=== PATIENT | female | born 1965 | race Caucasian/White ===

== ENCOUNTER 2016-09-23 08:51 | Emergency (ER) | payer MEDICAID, OTHER ==
[2016-09-23] MEDS ORDERED: ONDANSETRON 4MG/2ML VIAL (J2405) As Ordered ONE (09:54)
[2016-09-23] MEDS ORDERED: MORPHINE 4 MG/ML 1ML SYRINGE As Ordered ONE (09:55)
[2016-09-23] MEDS ORDERED: KETOROLAC 30 MG/ML VIAL (J1885) As Ordered ONE (10:41)
--- NOTE | 2016-09-23 11:17 | REP ---
Clinical: Right upper quadrant and right flank pain. Comparison: 07/17/2016. Findings: Liver, spleen, pancreas, bilateral adrenal glands and kidneys are normal for noncontrast evaluation. Specifically, there is no significant perinephric stranding, hydroureteronephrosis, intrarenal or obstructing ureteral calculi. The patient is status post cholecystectomy. The enteric system is without obstruction or acute inflammatory process and a normal terminal ileum and appendix are identified in the right lower quadrant. Scattered colonic diverticula noted without acute diverticulitis. Stable diverticulum extending along the posterior aspect of the gastric fundus in the left upper quadrant. Pelvis demonstrates normal bladder and evidence for prior hysterectomy. No pelvic fluid or ascites. No adenopathy. No mass lesion. No free air. Abdominal aorta without aneurysm. Musculoskeletal structures demonstrate degenerative changes. Lung bases are clear. Impression: No acute intra-abdominal or pelvic pathology appreciated. Evidence for prior cholecystectomy and hysterectomy. Colonic diverticula without acute diverticulitis. No ascites. Signed by Francesco Ross MD 09/23/2016 11:09 A
--- NOTE | 2016-09-23 12:34 | EDDOCDS ---
Nurse's Notes [facility] Name: Ana Rosa Melendez Age: 51 yrs Sex: Female : 1965 Arrival Date: 09/23/2016 Time: 08:51 Bed 12 Private MD: Diagnosis: Right upper quadrant pain Presentation: 09/23 08:53 Presenting complaint: EMS states: right sided flank pain since this 0400 this AM. pt pml reported nausea enroute and was given 4mg Zofran IVP. Acute neurological deficits are not present. Mechanism of Injury: No Mechanism of Injury. Adult Sepsis Screening: The patient does not have new or worsening altered mentation. Patient's respiratory rate is less than 22. Systolic blood pressure is greater than 100. Patient has a qSOFA score of 0- Negative Sepsis Screen. Suicide/Homicide risk assessment- the patient denies having any suicidal and/or homicidal ideations and does not present with any other emotional, behavioral or mental health complaints. 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 Transition of care: patient was not received from another setting of care. 08:53 Acuity: ELISA Level 3 pml 08:53 Method Of Arrival: Ambulance pml Triage Assessment: 09:00 General: Appears uncomfortable, Behavior is anxious, cooperative. Pain: Location: pml anterior aspect of right lateral abdomen and right upper quadrant Pain currently is 10 out of 10 on a pain scale. HIV screening NA for this visit Offered previously. The patient is triaged at the bedside. See Assessment in Nurses Notes section of ED record. Neurological: Level of Consciousness is awake, alert, Oriented to person, place, time. Cardiovascular: Capillary refill < 3 seconds. Respiratory: Airway is patent Respiratory effort is even, unlabored. GI: Abdomen is non- distended obese, Bowel sounds present X 4 quads. Abd is soft X 4 quads Reports nausea, right sided flank pain. : Denies burning with urination, inability to void, hematuria. Derm: Skin is pink, warm & dry. Musculoskeletal: Circulation, motion, and sensation intact Capillary refill < 3 seconds. 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 duloxetine 30 mg Oral cpDR 1 cap once daily 2. hydrochlorothiazide 12.5 mg Oral tab 1 tab once daily 3. Lipitor 80 mg Oral tab 1 tab once daily 4. Premarin 0.9 mg Oral tab 1 tab once daily 5. omeprazole 40 mg Oral cpDR 1 cap once daily 6. montelukast 10 mg oral tab 1 tab once daily 7. losartan 100 mg oral tab 1 tab once daily 8. aspirin 81 mg Oral chew 1 tab once daily 9. cholecalciferol (vitamin D3) 50,000 unit oral cap every 2 weeks 10. hydrocodone-acetaminophen 5-325 mg Oral tab 1 tab every 4-6 hours (Last dose: 09/23/2016 04:00) - PMHx: Depression; Hypercholesterolemia; Hypertension; - PSHx: ; Cholecystectomy; partial hysterectomy; - Social history: Smoking status: Patient uses tobacco products, heavy tobacco smoker. No barriers to communication noted, The patient speaks fluent Yemeni, Speaks appropriately for age. - Family history: Not pertinent. - : The pt / caregiver states he / she is not on anticoagulants. Home medication list is obtained from the patient. - Exposure Risk Screening:: None identified. Screenin:13 Screening information is obtained from the patient. Fall risk: No risks identified. pml Assistance ADL's: requires no assistance with activities of daily living. Abuse/DV Screen: The patient / caregiver reports he/she is: not in a situation that causes fear, pain or injury. Nutritional screening: No deficits noted. Advance Directives: Currently, there is no health care proxy. home support is adequate. Assessment: 09:13 General: see triage note. pml 10:02 General: Appears in no apparent distress, comfortable, Behavior is appropriate for age, pml cooperative. Pain: Location: right upper quadrant Pain currently is 8 out of 10 on a pain scale. Neurological: Level of Consciousness is awake, alert, Oriented to person, place, time. Cardiovascular: Capillary refill < 3 seconds. Respiratory: Airway is patent Respiratory effort is even, unlabored. Derm: Skin is pink, warm & dry. 10:45 General: continues to report 9/10 pain in right flank - ambulatory to bathroom x 2 pml without difficulty, gait steady. family at bedside . 11:46 General: Appears in no apparent distress, comfortable, Behavior is appropriate for age, pml cooperative. Pain: Location: anterior aspect of right lateral abdomen Pain currently is 8 out of 10 on a pain scale. Neurological: Level of Consciousness is awake, alert, Oriented to person, place, time. Cardiovascular: Capillary refill < 3 seconds. Respiratory: Airway is patent Respiratory effort is even, unlabored. Derm: Skin is pink, warm & dry. 12:32 General: Appears in no apparent distress, comfortable, Behavior is appropriate for age, pml cooperative. Pain: Location: anterior aspect of right lateral abdomen Pain currently is 6 out of 10 on a pain scale. Neurological: Level of Consciousness is awake, alert, Oriented to person, place, time. Cardiovascular: Capillary refill < 3 seconds. Respiratory: Airway is patent Respiratory effort is even, unlabored. Derm: Skin is pink, warm & dry. Vital Signs: 08:58 BP 162 / 76 (auto/); pml 09:00 Pulse 82 MON; Pulse Ox 96% ; pml 09:01 BP 162 / 76 LA Sitting (auto/reg); Pulse 85; Resp 20; Temp 97.3(TE); Pulse Ox 96% ; jrd Weight 96.62 kg; Height 5 ft. 4 in. (162.56 cm); Pain 9/10; 09:57 Pulse Ox 96% ; pml 09:57 BP 128 / 58 (auto/); pml 10:25 Pain 8/10; pml 12:32 BP 135 / 73; Pulse 79; Resp 18; Temp 97.2; Pulse Ox 98% on R/A; Pain 6/10; pml 09:01 Body Mass Index 36.56 (96.62 kg, 162.56 cm) jrd Vitals: 09:00 Log In Time N/A - ambulance arrival. pml ED Course: 08:52 Patient visited by Marybeth Camara, Cushion Worker. deg 08:52 Patient moved to Waiting deg 08:52 Patient moved to 12 deg 08:56 [facility]ell [facility]. jo4 08:56 Qi Bartlett MD is Attending Physician. jo4 08:56 Triage Initiated pml 09:02 Patient visited by Chaim Lozano PCA. jrd 09:02 Patient visited by Vicki Dominguez RN. pml 09:12 Maintain field IV. Dressing intact. Good blood return noted. Site clean & dry. Gauge & pml site: 18g right AC. 09:13 The patient / caregiver is instructed regarding the plan of care and ED course. Patient pml has correct armband on for positive identification. Placed in gown. Bed in low position. Call light in reach. Side rails up X2. 09:39 Patient visited by Qi Bartlett MD. sd1 10:03 Patient visited by Vicki Dominguez,ESTHER. pml 10:46 Patient visited by Vicki Dominguez,ESTHER. pml 11:22 [facility] [place] Payment Agreement was scanned into [employer] and attached to record. jp5 11:25 Patient name changed from Iyonne\S\\S\Nora\S\ to Iyonne\S\ \S\Nora. EDMS 11:30 CT ABD & PELVIS: No Contrast Returned. EDMS 11:47 Patient visited by Vicki Dominguez RN. pml 12:32 Discontinued lock intact, bleeding controlled, pressure dressing applied, No pml redness/swelling at site. No procedures done that require assistance. Administered Medications: 10:01 Drug: morphine 4 mg [morphine 4 mg/mL intravenous cartridge (1 mL)] Route: IVP; Site: pml right antecubital; 10:25 Follow up: Pain 8/10 Adult; Response: No significant change. pml 10:02 Drug: Ondansetron 4 mg [ondansetron HCl 2 mg/mL intravenous solution (2 mL)] Route: pml IVP; Site: right antecubital; 10:44 Drug: ketorolac 30 mg [ketorolac 30 mg/mL (1 mL) injection solution (1 mL)] Route: IVP; pml Site: right antecubital; Order Results: Lab Order: UA; SPEC'M 09/23/16 09:59 Test: APPEARANCE, URINE; Value: CLEAR; Range: CLEAR; Status: F Test: COLOR, URINE; Value: STRAW; Range: YELLOW; Status: F Test: PH,URINE; Value: 6.0; Range: 5.0-9.0; Units: UNITS; Status: F Test: SPECIFIC GRAVITY URINE AUTO; Value: 1.003; Range: 1.002-1.035; Status: F Test: PROTEIN, URINE AUTO; Value: NEGATIVE; Range: NEGATIVE; Units: mg/dL; Status: F Test: GLUCOSE, URINE (UA) AUTO; Value: NEGATIVE; Range: NEGATIVE; Units: mg/dL; Status: F Test: KETONE, URINE AUTO; Value: NEGATIVE; Range: NEGATIVE; Units: mg/dL; Status: F Test: UROBILINOGEN, URINE AUTO; Value: 0.2; Range: 0.0-2.0; Units: mg/dL; Status: F Test: BILIRUBIN, URINE AUTO; Value: NEGATIVE; Range: NEGATIVE; Status: F Test: NITRITE, URINE AUTO; Value: NEGATIVE; Range: NEGATIVE; Status: F Test: LEUKOCYTE ESTERASE, URINE AUTO; Value: NEGATIVE; Range: NEGATIVE; Status: F Test: BLOOD, URINE BLOOD; Value: NEGATIVE; Range: NEGATIVE; Status: F Test: WBC, URINE AUTO; Value: 0; Range: 0-3; Units: /HPF; Status: F Test: RBC, URINE AUTO; Value: 1; Range: 0-3; Units: /HPF; Status: F Test: BACTERIA, URINE AUTO; Value: 2+; Range: NEGATIVE; Abnormal: Above high normal; Status: F Test: SQUAMOUS EPITHELIAL CELL UR AU; Value: 1; Range: 0-6; Units: /HPF; Status: F Test: HYALINE CAST, URINE AUTO; Value: 0; Range: 0-1; Units: /LPF; Status: F Radiology Order: CT ABD & PELVIS: No Contrast Test: CT ABD & PELVIS: No Contrast REASON FOR EXAMINATION: Flank pain/RUQ; Clinical: Right upper quadrant and right flank pain.; ; Comparison: 07/17/2016.; ; Findings:; Liver, spleen, pancreas, bilateral adrenal glands and kidneys are normal for; noncontrast evaluation. Specifically, there is no significant perinephric; stranding, hydroureteronephrosis, intrarenal or obstructing ureteral calculi.; The patient is status post cholecystectomy. The enteric system is without; obstruction or acute inflammatory process and a normal terminal ileum and; appendix are identified in the right lower quadrant. Scattered colonic; diverticula noted without acute diverticulitis. Stable diverticulum extending; along the posterior aspect of the gastric fundus in the left upper quadrant.; Pelvis demonstrates normal bladder and evidence for prior hysterectomy. No; pelvic fluid or ascites. No adenopathy. No mass lesion. No free air.; Abdominal aorta without aneurysm. Musculoskeletal structures demonstrate; degenerative changes. Lung bases are clear.; ; Impression:; No acute intra-abdominal or pelvic pathology appreciated.; Evidence for prior cholecystectomy and hysterectomy.; Colonic diverticula without acute diverticulitis.; No ascites.; ; ; Signed by; Francesco Ross MD 09/23/2016 11:09 A; Outcome: 12:16 Discharge ordered by Provider. jo4 12:32 Discharge Assessment: Patient awake, alert and oriented x 3. No cognitive and/or pml functional deficits noted. Patient verbalized understanding of disposition instructions. patient administered narcotics - yes. Pt provided with safe discharge. The following High Risk Discharge criteria are identified: None. Discharged to home ambulatory, with family. Condition: good Condition: stable. Discharge instructions given to patient, Instructed on discharge instructions, follow up and referral plans. medication usage, Demonstrated understanding of instructions, medications, Pt was receptive of discharge instructions/ teaching. Prescriptions given X 1. CT Study completed. Property sent home with patient. 12:33 Patient left the ED. pml Signatures: Dispatcher [employer] EDMS Qi Bartlett MD MD sd1 Marybeth Camara, Cushion Worker Unit deg Vicki Dominguez RN RN pml Chaim Lozano, Jerardo Juárez jp5 Deborah Dowell DO DO jo4 SHADY
--- NOTE | 2016-09-23 12:34 | EDDOCDS ---
Physician Documentation [facility] Name: Ana Rosa Melendez Age: 51 yrs Sex: Female : 1965 Arrival Date: 09/23/2016 Time: 08:51 Bed 12 Private MD: Disposition: 09/23 11:24 I have independently interviewed and examined the patient, and I agree with the sd1 investigation, diagnosis and treatment plan as documented by the Resident. Disposition: 09/23/16 12:16 Discharged to Home/Self Care. Impression: Right upper quadrant pain. - Condition is Stable. - Discharge Instructions: Flank Pain. - Prescriptions for Anaprox DS 550 mg Oral Tablet - take 1 tablet by ORAL route every 12 hours As needed; 20 tablet. - Medication Reconciliation, Local Pharmacy Hours form. - Follow up: Private Physician; When: 1 week; Reason: Recheck today's complaints. - Problem is new. - Symptoms have improved. - Notes: You were evaluated in the emergency department for flank pain. A CT of your abdomen and pelvis reported no acute changes. You were given pain medication and an anti-inflammatory which appeared to control your pain somewhat. Your urine was analyzed and it was essentially within normal limits. An anti-inflammatory has been prescribed to you at time of discharge. Your kidney function at a prior visit was within normal limits. Please follow-up with your primary care physician in 1 week. Historical: - Allergies: Wellbutrin (Rash); - Home Meds: 1. duloxetine 30 mg Oral cpDR 1 cap once daily 2. hydrochlorothiazide 12.5 mg Oral tab 1 tab once daily 3. Lipitor 80 mg Oral tab 1 tab once daily 4. Premarin 0.9 mg Oral tab 1 tab once daily 5. omeprazole 40 mg Oral cpDR 1 cap once daily 6. montelukast 10 mg oral tab 1 tab once daily 7. losartan 100 mg oral tab 1 tab once daily 8. aspirin 81 mg Oral chew 1 tab once daily 9. cholecalciferol (vitamin D3) 50,000 unit oral cap every 2 weeks 10. hydrocodone-acetaminophen 5-325 mg Oral tab 1 tab every 4-6 hours (Last dose: 09/23/2016 04:00) - PMHx: Depression; Hypercholesterolemia; Hypertension; - PSHx: ; Cholecystectomy; partial hysterectomy; - Social history: Smoking status: Patient uses tobacco products, heavy tobacco smoker. No barriers to communication noted, The patient speaks fluent Setswana, Speaks appropriately for age. - Family history: Not pertinent. - : The pt / caregiver states he / she is not on anticoagulants. Home medication list is obtained from the patient. - Exposure Risk Screening:: None identified. 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 4 in. (162.56 cm); Pain 9/10; 09:57 Pulse Ox 96% ; pml 09:57 BP 128 / 58 (auto/); pml 10:25 Pain 8/10; pml 12:32 BP 135 / 73; Pulse 79; Resp 18; Temp 97.2; Pulse Ox 98% on R/A; Pain 6/10; pml 09:01 Body Mass Index 36.56 (96.62 kg, 162.56 cm) jrd MDM: 09:51 Ondansetron 4 mg IVP once ordered. jo4 09:51 morphine 4 mg IVP every 15 minutes; Document pain score/vitals after each dose (Hold if jo4 SBP < 90mmHg) x2 ordered. 09:51 IV Saline Lock ordered. jo4 09:52 UA Ordered. EDMS 10:30 UA Reviewed. sd1 10:36 ketorolac 30 mg IVP once ordered. jo4 10:37 CT ABD & PELVIS: No Contrast Ordered. 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 11:22 [facility] [place] Agreement was scanned into [employer] and attached to record. jp5 11:22 Financial registration complete. jp5 12:06 CT ABD & PELVIS: No Contrast Reviewed. jo4 Administered Medications: 10:01 Drug: morphine 4 mg [morphine 4 mg/mL intravenous cartridge (1 mL)] Route: IVP; Site: pml right antecubital; 10:25 Follow up: Pain 8/10 Adult; Response: No significant change. pml 10:02 Drug: Ondansetron 4 mg [ondansetron HCl 2 mg/mL intravenous solution (2 mL)] Route: pml IVP; Site: right antecubital; 10:44 Drug: ketorolac 30 mg [ketorolac 30 mg/mL (1 mL) injection solution (1 mL)] Route: IVP; pml Site: right antecubital; Signatures: Dispatcher [employer] EDQi Conteh MD MD sd1 Vicki DominguezRN RN pml Jerardo Bailey jp5 Deborah Dowell DO DO jo4 The chart was reviewed and I authenticate all verbal orders and agree with the evaluation and treatment provided.Attachments: 11:22 [facility] Payment Agreement jp5 MTDD
--- NOTE | 2016-09-25 13:34 | EDDOCDS ---
Physician Documentation [facility] Name: Ana Rosa Melendez Age: 51 yrs Sex: Female : 1965 Arrival Date: 09/23/2016 Time: 08:51 Bed 12 Private MD: Disposition: 09/23 11:24 I have independently interviewed and examined the patient, and I agree with the sd1 investigation, diagnosis and treatment plan as documented by the Resident. Disposition: 09/23/16 12:16 Discharged to Home/Self Care. Impression: Right upper quadrant pain. - Condition is Stable. - Discharge Instructions: Flank Pain. - Prescriptions for Anaprox DS 550 mg Oral Tablet - take 1 tablet by ORAL route every 12 hours As needed; 20 tablet. - Medication Reconciliation, Local Pharmacy Hours form. - Follow up: Private Physician; When: 1 week; Reason: Recheck today's complaints. - Problem is new. - Symptoms have improved. - Notes: You were evaluated in the emergency department for flank pain. A CT of your abdomen and pelvis reported no acute changes. You were given pain medication and an anti-inflammatory which appeared to control your pain somewhat. Your urine was analyzed and it was essentially within normal limits. An anti-inflammatory has been prescribed to you at time of discharge. Your kidney function at a prior visit was within normal limits. Please follow-up with your primary care physician in 1 week. Historical: - Allergies: Wellbutrin (Rash); - Home Meds: 1. duloxetine 30 mg Oral cpDR 1 cap once daily 2. hydrochlorothiazide 12.5 mg Oral tab 1 tab once daily 3. Lipitor 80 mg Oral tab 1 tab once daily 4. Premarin 0.9 mg Oral tab 1 tab once daily 5. omeprazole 40 mg Oral cpDR 1 cap once daily 6. montelukast 10 mg oral tab 1 tab once daily 7. losartan 100 mg oral tab 1 tab once daily 8. aspirin 81 mg Oral chew 1 tab once daily 9. cholecalciferol (vitamin D3) 50,000 unit oral cap every 2 weeks 10. hydrocodone-acetaminophen 5-325 mg Oral tab 1 tab every 4-6 hours (Last dose: 09/23/2016 04:00) - PMHx: Depression; Hypercholesterolemia; Hypertension; - PSHx: ; Cholecystectomy; partial hysterectomy; - Social history: Smoking status: Patient uses tobacco products, heavy tobacco smoker. No barriers to communication noted, The patient speaks fluent Romansh, Speaks appropriately for age. - Family history: Not pertinent. - : The pt / caregiver states he / she is not on anticoagulants. Home medication list is obtained from the patient. - Exposure Risk Screening:: None identified. 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 4 in. (162.56 cm); Pain 9/10; 09:57 Pulse Ox 96% ; pml 09:57 BP 128 / 58 (auto/); pml 10:25 Pain 8/10; pml 12:32 BP 135 / 73; Pulse 79; Resp 18; Temp 97.2; Pulse Ox 98% on R/A; Pain 6/10; pml 09:01 Body Mass Index 36.56 (96.62 kg, 162.56 cm) jrd MDM: 09:51 Ondansetron 4 mg IVP once ordered. jo4 09:51 morphine 4 mg IVP every 15 minutes; Document pain score/vitals after each dose (Hold if jo4 SBP < 90mmHg) x2 ordered. 09:51 IV Saline Lock ordered. jo4 09:52 UA Ordered. EDMS 10:30 UA Reviewed. sd1 10:36 ketorolac 30 mg IVP once ordered. jo4 10:37 CT ABD & PELVIS: No Contrast Ordered. 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 11:22 [facility] [place] was scanned into [employer] and attached to record. jp5 11:22 Financial registration complete. jp5 12:06 CT ABD & PELVIS: No Contrast Reviewed. jo4 12:40 T-Sheet-- Draft Copy was scanned into [employer] and attached to record. se 14:37 PCR was scanned into [employer] and attached to record. gb Administered Medications: 10:01 Drug: morphine 4 mg [morphine 4 mg/mL intravenous cartridge (1 mL)] Route: IVP; Site: pml right antecubital; 10:25 Follow up: Pain 8/10 Adult; Response: No significant change. pml 10:02 Drug: Ondansetron 4 mg [ondansetron HCl 2 mg/mL intravenous solution (2 mL)] Route: pml IVP; Site: right antecubital; 10:44 Drug: ketorolac 30 mg [ketorolac 30 mg/mL (1 mL) injection solution (1 mL)] Route: IVP; pml Site: right antecubital; Signatures: Dispatcher [employer] EDQi Conteh MD MD sd1 Dana Genao, Reg Reg gb Vicki DominguezRN RN pml Jerardo Bailey jp5 Deborah Dowell DO DO jo4 Hoffert, Sarah seh The chart was reviewed and I authenticate all verbal orders and agree with the evaluation and treatment provided.Attachments: 11:22 [facility] [place] jp5 12:40 T-Sheet-- Draft Copy se Chart Complete MTDD
--- NOTE | 2016-09-25 13:34 | EDDOCDS ---
Nurse's Notes [facility] Name: Ana Rosa Melendez Age: 51 yrs Sex: Female : 1965 Arrival Date: 09/23/2016 Time: 08:51 Bed 12 Private MD: Diagnosis: Right upper quadrant pain Presentation: 09/23 08:53 Presenting complaint: EMS states: right sided flank pain since this 0400 this AM. pt pml reported nausea enroute and was given 4mg Zofran IVP. Acute neurological deficits are not present. Mechanism of Injury: No Mechanism of Injury. Adult Sepsis Screening: The patient does not have new or worsening altered mentation. Patient's respiratory rate is less than 22. Systolic blood pressure is greater than 100. Patient has a qSOFA score of 0- Negative Sepsis Screen. Suicide/Homicide risk assessment- the patient denies having any suicidal and/or homicidal ideations and does not present with any other emotional, behavioral or mental health complaints. Status: Patient is not a customer service agent or dependent. Transition of care: patient was not received from another setting of care. 08:53 Acuity: ELISA Level 3 pml 08:53 Method Of Arrival: Ambulance pml Triage Assessment: 09:00 General: Appears uncomfortable, Behavior is anxious, cooperative. Pain: Location: pml anterior aspect of right lateral abdomen and right upper quadrant Pain currently is 10 out of 10 on a pain scale. HIV screening NA for this visit Offered previously. The patient is triaged at the bedside. See Assessment in Nurses Notes section of ED record. Neurological: Level of Consciousness is awake, alert, Oriented to person, place, time. Cardiovascular: Capillary refill < 3 seconds. Respiratory: Airway is patent Respiratory effort is even, unlabored. GI: Abdomen is non- distended obese, Bowel sounds present X 4 quads. Abd is soft X 4 quads Reports nausea, right sided flank pain. : Denies burning with urination, inability to void, hematuria. Derm: Skin is pink, warm & dry. Musculoskeletal: Circulation, motion, and sensation intact Capillary refill < 3 seconds. 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 duloxetine 30 mg Oral cpDR 1 cap once daily 2. hydrochlorothiazide 12.5 mg Oral tab 1 tab once daily 3. Lipitor 80 mg Oral tab 1 tab once daily 4. Premarin 0.9 mg Oral tab 1 tab once daily 5. omeprazole 40 mg Oral cpDR 1 cap once daily 6. montelukast 10 mg oral tab 1 tab once daily 7. losartan 100 mg oral tab 1 tab once daily 8. aspirin 81 mg Oral chew 1 tab once daily 9. cholecalciferol (vitamin D3) 50,000 unit oral cap every 2 weeks 10. hydrocodone-acetaminophen 5-325 mg Oral tab 1 tab every 4-6 hours (Last dose: 09/23/2016 04:00) - PMHx: Depression; Hypercholesterolemia; Hypertension; - PSHx: ; Cholecystectomy; partial hysterectomy; - Social history: Smoking status: Patient uses tobacco products, heavy tobacco smoker. No barriers to communication noted, The patient speaks fluent Montenegrin, Speaks appropriately for age. - Family history: Not pertinent. - : The pt / caregiver states he / she is not on anticoagulants. Home medication list is obtained from the patient. - Exposure Risk Screening:: None identified. Screenin:13 Screening information is obtained from the patient. Fall risk: No risks identified. pml Assistance ADL's: requires no assistance with activities of daily living. Abuse/DV Screen: The patient / caregiver reports he/she is: not in a situation that causes fear, pain or injury. Nutritional screening: No deficits noted. Advance Directives: Currently, there is no health care proxy. home support is adequate. Assessment: 09:13 General: see triage note. pml 10:02 General: Appears in no apparent distress, comfortable, Behavior is appropriate for age, pml cooperative. Pain: Location: right upper quadrant Pain currently is 8 out of 10 on a pain scale. Neurological: Level of Consciousness is awake, alert, Oriented to person, place, time. Cardiovascular: Capillary refill < 3 seconds. Respiratory: Airway is patent Respiratory effort is even, unlabored. Derm: Skin is pink, warm & dry. 10:45 General: continues to report 9/10 pain in right flank - ambulatory to bathroom x 2 pml without difficulty, gait steady. family at bedside . 11:46 General: Appears in no apparent distress, comfortable, Behavior is appropriate for age, pml cooperative. Pain: Location: anterior aspect of right lateral abdomen Pain currently is 8 out of 10 on a pain scale. Neurological: Level of Consciousness is awake, alert, Oriented to person, place, time. Cardiovascular: Capillary refill < 3 seconds. Respiratory: Airway is patent Respiratory effort is even, unlabored. Derm: Skin is pink, warm & dry. 12:32 General: Appears in no apparent distress, comfortable, Behavior is appropriate for age, pml cooperative. Pain: Location: anterior aspect of right lateral abdomen Pain currently is 6 out of 10 on a pain scale. Neurological: Level of Consciousness is awake, alert, Oriented to person, place, time. Cardiovascular: Capillary refill < 3 seconds. Respiratory: Airway is patent Respiratory effort is even, unlabored. Derm: Skin is pink, warm & dry. Vital Signs: 08:58 BP 162 / 76 (auto/); pml 09:00 Pulse 82 MON; Pulse Ox 96% ; pml 09:01 BP 162 / 76 LA Sitting (auto/reg); Pulse 85; Resp 20; Temp 97.3(TE); Pulse Ox 96% ; jrd Weight 96.62 kg; Height 5 ft. 4 in. (162.56 cm); Pain 9/10; 09:57 Pulse Ox 96% ; pml 09:57 BP 128 / 58 (auto/); pml 10:25 Pain 8/10; pml 12:32 BP 135 / 73; Pulse 79; Resp 18; Temp 97.2; Pulse Ox 98% on R/A; Pain 6/10; pml 09:01 Body Mass Index 36.56 (96.62 kg, 162.56 cm) jrd Vitals: 09:00 Log In Time N/A - ambulance arrival. pml ED Course: 08:52 Patient visited by Marybeth Camara, Director Digital Catalogue. deg 08:52 Patient moved to Waiting deg 08:52 Patient moved to 12 deg 08:56 [facility] Dowell DO [facility]. jo4 08:56 Qi Bartlett MD is Attending Physician. jo4 08:56 Triage Initiated pml 09:02 Patient visited by Chaim Lozano PCA. jrd 09:02 Patient visited by Vicki Dominguez RN. pml 09:12 Maintain field IV. Dressing intact. Good blood return noted. Site clean & dry. Gauge & pml site: 18g right AC. 09:13 The patient / caregiver is instructed regarding the plan of care and ED course. Patient pml has correct armband on for positive identification. Placed in gown. Bed in low position. Call light in reach. Side rails up X2. 09:39 Patient visited by Qi Bartlett MD. sd1 10:03 Patient visited by Vicki Dominguez,ESTHER. pml 10:46 Patient visited by Vicki Dominguez,ESTHER. pml 11:22 [facility] Payment Agreement was scanned into [email or web address] and attached to record. jp5 11:25 Patient name changed from Iyonne\S\\S\Nora\S\ to Iyonne\S\ \S\Nora. EDMS 11:30 CT ABD & PELVIS: No Contrast Returned. EDMS 11:47 Patient visited by Vicki Dominguez,ESTHER. pml 12:32 Discontinued lock intact, bleeding controlled, pressure dressing applied, No pml redness/swelling at site. No procedures done that require assistance. 12:40 T-Sheet-- Draft Copy was scanned into [email or web address] and attached to record. [facility] 14:37 PCR was scanned into [email or web address] and attached to record. gb Administered Medications: 10:01 Drug: morphine 4 mg [morphine 4 mg/mL intravenous cartridge (1 mL)] Route: IVP; Site: pml right antecubital; 10:25 Follow up: Pain 8/10 Adult; Response: No significant change. pml 10:02 Drug: Ondansetron 4 mg [ondansetron HCl 2 mg/mL intravenous solution (2 mL)] Route: pml IVP; Site: right antecubital; 10:44 Drug: ketorolac 30 mg [ketorolac 30 mg/mL (1 mL) injection solution (1 mL)] Route: IVP; pml Site: right antecubital; Order Results: Lab Order: UA; SPEC'M 09/23/16 09:59 Test: APPEARANCE, URINE; Value: CLEAR; Range: CLEAR; Status: F Test: COLOR, URINE; Value: STRAW; Range: YELLOW; Status: F Test: PH,URINE; Value: 6.0; Range: 5.0-9.0; Units: UNITS; Status: F Test: SPECIFIC GRAVITY URINE AUTO; Value: 1.003; Range: 1.002-1.035; Status: F Test: PROTEIN, URINE AUTO; Value: NEGATIVE; Range: NEGATIVE; Units: mg/dL; Status: F Test: GLUCOSE, URINE (UA) AUTO; Value: NEGATIVE; Range: NEGATIVE; Units: mg/dL; Status: F Test: KETONE, URINE AUTO; Value: NEGATIVE; Range: NEGATIVE; Units: mg/dL; Status: F Test: UROBILINOGEN, URINE AUTO; Value: 0.2; Range: 0.0-2.0; Units: mg/dL; Status: F Test: BILIRUBIN, URINE AUTO; Value: NEGATIVE; Range: NEGATIVE; Status: F Test: NITRITE, URINE AUTO; Value: NEGATIVE; Range: NEGATIVE; Status: F Test: LEUKOCYTE ESTERASE, URINE AUTO; Value: NEGATIVE; Range: NEGATIVE; Status: F Test: BLOOD, URINE BLOOD; Value: NEGATIVE; Range: NEGATIVE; Status: F Test: WBC, URINE AUTO; Value: 0; Range: 0-3; Units: /HPF; Status: F Test: RBC, URINE AUTO; Value: 1; Range: 0-3; Units: /HPF; Status: F Test: BACTERIA, URINE AUTO; Value: 2+; Range: NEGATIVE; Abnormal: Above high normal; Status: F Test: SQUAMOUS EPITHELIAL CELL UR AU; Value: 1; Range: 0-6; Units: /HPF; Status: F Test: HYALINE CAST, URINE AUTO; Value: 0; Range: 0-1; Units: /LPF; Status: F Radiology Order: CT ABD & PELVIS: No Contrast Test: CT ABD & PELVIS: No Contrast REASON FOR EXAMINATION: Flank pain/RUQ; Clinical: Right upper quadrant and right flank pain.; ; Comparison: 07/17/2016.; ; Findings:; Liver, spleen, pancreas, bilateral adrenal glands and kidneys are normal for; noncontrast evaluation. Specifically, there is no significant perinephric; stranding, hydroureteronephrosis, intrarenal or obstructing ureteral calculi.; The patient is status post cholecystectomy. The enteric system is without; obstruction or acute inflammatory process and a normal terminal ileum and; appendix are identified in the right lower quadrant. Scattered colonic; diverticula noted without acute diverticulitis. Stable diverticulum extending; along the posterior aspect of the gastric fundus in the left upper quadrant.; Pelvis demonstrates normal bladder and evidence for prior hysterectomy. No; pelvic fluid or ascites. No adenopathy. No mass lesion. No free air.; Abdominal aorta without aneurysm. Musculoskeletal structures demonstrate; degenerative changes. Lung bases are clear.; ; Impression:; No acute intra-abdominal or pelvic pathology appreciated.; Evidence for prior cholecystectomy and hysterectomy.; Colonic diverticula without acute diverticulitis.; No ascites.; ; ; Signed by; Francesco Ross MD 09/23/2016 11:09 A; Outcome: 12:16 Discharge ordered by Provider. jo4 12:32 Discharge Assessment: Patient awake, alert and oriented x 3. No cognitive and/or pml functional deficits noted. Patient verbalized understanding of disposition instructions. patient administered narcotics - yes. Pt provided with safe discharge. The following High Risk Discharge criteria are identified: None. Discharged to home ambulatory, with family. Condition: good Condition: stable. Discharge instructions given to patient, Instructed on discharge instructions, follow up and referral plans. medication usage, Demonstrated understanding of instructions, medications, Pt was receptive of discharge instructions/ teaching. Prescriptions given X 1. CT Study completed. Property sent home with patient. 12:33 Patient left the ED. pml Signatures: Dispatcher [employer] EDQi Conteh MD MD sd1 Marybeth Camara, Director Digital Catalogue Unit deg Dana Genao, Reg Reg Vicki Coombs,RN RN pml Chaim Lozano, PROVIDER EDUCATION SPECIALIST PROVIDER EDUCATION SPECIALIST Jerardo Kern Jane, DO DO jo4 Qi Ludwig Chart Complete MTDD
--- NOTE | 2016-09-25 13:34 | EDDOCDS ---
Physician Documentation [facility] Name: Ana Rosa Melendez Age: 51 yrs Sex: Female : 1965 Arrival Date: 09/23/2016 Time: 08:51 Bed 12 Private MD: Disposition: 09/23 11:24 I have independently interviewed and examined the patient, and I agree with the sd1 investigation, diagnosis and treatment plan as documented by the Resident. Disposition: 09/23/16 12:16 Discharged to Home/Self Care. Impression: Right upper quadrant pain. - Condition is Stable. - Discharge Instructions: Flank Pain. - Prescriptions for Anaprox DS 550 mg Oral Tablet - take 1 tablet by ORAL route every 12 hours As needed; 20 tablet. - Medication Reconciliation, Local Pharmacy Hours form. - Follow up: Private Physician; When: 1 week; Reason: Recheck today's complaints. - Problem is new. - Symptoms have improved. - Notes: You were evaluated in the emergency department for flank pain. A CT of your abdomen and pelvis reported no acute changes. You were given pain medication and an anti-inflammatory which appeared to control your pain somewhat. Your urine was analyzed and it was essentially within normal limits. An anti-inflammatory has been prescribed to you at time of discharge. Your kidney function at a prior visit was within normal limits. Please follow-up with your primary care physician in 1 week. Historical: - Allergies: Wellbutrin (Rash); - Home Meds: 1. duloxetine 30 mg Oral cpDR 1 cap once daily 2. hydrochlorothiazide 12.5 mg Oral tab 1 tab once daily 3. Lipitor 80 mg Oral tab 1 tab once daily 4. Premarin 0.9 mg Oral tab 1 tab once daily 5. omeprazole 40 mg Oral cpDR 1 cap once daily 6. montelukast 10 mg oral tab 1 tab once daily 7. losartan 100 mg oral tab 1 tab once daily 8. aspirin 81 mg Oral chew 1 tab once daily 9. cholecalciferol (vitamin D3) 50,000 unit oral cap every 2 weeks 10. hydrocodone-acetaminophen 5-325 mg Oral tab 1 tab every 4-6 hours (Last dose: 09/23/2016 04:00) - PMHx: Depression; Hypercholesterolemia; Hypertension; - PSHx: ; Cholecystectomy; partial hysterectomy; - Social history: Smoking status: Patient uses tobacco products, heavy tobacco smoker. No barriers to communication noted, The patient speaks fluent Armenian, Speaks appropriately for age. - Family history: Not pertinent. - : The pt / caregiver states he / she is not on anticoagulants. Home medication list is obtained from the patient. - Exposure Risk Screening:: None identified. 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 4 in. (162.56 cm); Pain 9/10; 09:57 Pulse Ox 96% ; pml 09:57 BP 128 / 58 (auto/); pml 10:25 Pain 8/10; pml 12:32 BP 135 / 73; Pulse 79; Resp 18; Temp 97.2; Pulse Ox 98% on R/A; Pain 6/10; pml 09:01 Body Mass Index 36.56 (96.62 kg, 162.56 cm) jrd MDM: 09:51 Ondansetron 4 mg IVP once ordered. jo4 09:51 morphine 4 mg IVP every 15 minutes; Document pain score/vitals after each dose (Hold if jo4 SBP < 90mmHg) x2 ordered. 09:51 IV Saline Lock ordered. jo4 09:52 UA Ordered. EDMS 10:30 UA Reviewed. sd1 10:36 ketorolac 30 mg IVP once ordered. jo4 10:37 CT ABD & PELVIS: No Contrast Ordered. 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 11:22 [facility] [place] [facility] Payment Agreement was scanned into [employer] and attached to record. jp5 11:22 Financial registration complete. jp5 12:06 CT ABD & PELVIS: No Contrast Reviewed. jo4 12:40 T-Sheet-- Draft Copy was scanned into [employer] and attached to record. se 14:37 PCR was scanned into [employer] and attached to record. gb Administered Medications: 10:01 Drug: morphine 4 mg [morphine 4 mg/mL intravenous cartridge (1 mL)] Route: IVP; Site: pml right antecubital; 10:25 Follow up: Pain 8/10 Adult; Response: No significant change. pml 10:02 Drug: Ondansetron 4 mg [ondansetron HCl 2 mg/mL intravenous solution (2 mL)] Route: pml IVP; Site: right antecubital; 10:44 Drug: ketorolac 30 mg [ketorolac 30 mg/mL (1 mL) injection solution (1 mL)] Route: IVP; pml Site: right antecubital; Signatures: Dispatcher [employer] EDQi Conteh MD MD sd1 Dana Genao, Reg Reg gb Vicki DominguezRN RN pml Jerardo Bailey jp5 Deborah Dowell DO DO jo4 Hoffert, Sarah seh The chart was reviewed and I authenticate all verbal orders and agree with the evaluation and treatment provided.Attachments: 11:22 [facility] [place] Payment Agreement jp5 12:40 T-Sheet-- Draft Copy se Chart Complete MTDD
--- NOTE | 2016-09-26 09:02 | EDDOCDS ---
Nurse's Notes [facility] Name: Ana Rosa Melendez Age: 51 yrs Sex: Female : 1965 Arrival Date: 09/23/2016 Time: 08:51 Bed 12 Private MD: Diagnosis: Right upper quadrant pain Presentation: 09/23 08:53 Presenting complaint: EMS states: right sided flank pain since this 0400 this AM. pt pml reported nausea enroute and was given 4mg Zofran IVP. Acute neurological deficits are not present. Mechanism of Injury: No Mechanism of Injury. Adult Sepsis Screening: The patient does not have new or worsening altered mentation. Patient's respiratory rate is less than 22. Systolic blood pressure is greater than 100. Patient has a qSOFA score of 0- Negative Sepsis Screen. Suicide/Homicide risk assessment- the patient denies having any suicidal and/or homicidal ideations and does not present with any other emotional, behavioral or mental health complaints. Status: Patient is not a hr shared services consultant or dependent. Transition of care: patient was not received from another setting of care. 08:53 Acuity: ELISA Level 3 pml 08:53 Method Of Arrival: Ambulance pml Triage Assessment: 09:00 General: Appears uncomfortable, Behavior is anxious, cooperative. Pain: Location: pml anterior aspect of right lateral abdomen and right upper quadrant Pain currently is 10 out of 10 on a pain scale. HIV screening NA for this visit Offered previously. The patient is triaged at the bedside. See Assessment in Nurses Notes section of ED record. Neurological: Level of Consciousness is awake, alert, Oriented to person, place, time. Cardiovascular: Capillary refill < 3 seconds. Respiratory: Airway is patent Respiratory effort is even, unlabored. GI: Abdomen is non- distended obese, Bowel sounds present X 4 quads. Abd is soft X 4 quads Reports nausea, right sided flank pain. : Denies burning with urination, inability to void, hematuria. Derm: Skin is pink, warm & dry. Musculoskeletal: Circulation, motion, and sensation intact Capillary refill < 3 seconds. 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 duloxetine 30 mg Oral cpDR 1 cap once daily 2. hydrochlorothiazide 12.5 mg Oral tab 1 tab once daily 3. Lipitor 80 mg Oral tab 1 tab once daily 4. Premarin 0.9 mg Oral tab 1 tab once daily 5. omeprazole 40 mg Oral cpDR 1 cap once daily 6. montelukast 10 mg oral tab 1 tab once daily 7. losartan 100 mg oral tab 1 tab once daily 8. aspirin 81 mg Oral chew 1 tab once daily 9. cholecalciferol (vitamin D3) 50,000 unit oral cap every 2 weeks 10. hydrocodone-acetaminophen 5-325 mg Oral tab 1 tab every 4-6 hours (Last dose: 09/23/2016 04:00) - PMHx: Depression; Hypercholesterolemia; Hypertension; - PSHx: ; Cholecystectomy; partial hysterectomy; - Social history: Smoking status: Patient uses tobacco products, heavy tobacco smoker. No barriers to communication noted, The patient speaks fluent Uruguayan, Speaks appropriately for age. - Family history: Not pertinent. - : The pt / caregiver states he / she is not on anticoagulants. Home medication list is obtained from the patient. - Exposure Risk Screening:: None identified. Screenin:13 Screening information is obtained from the patient. Fall risk: No risks identified. pml Assistance ADL's: requires no assistance with activities of daily living. Abuse/DV Screen: The patient / caregiver reports he/she is: not in a situation that causes fear, pain or injury. Nutritional screening: No deficits noted. Advance Directives: Currently, there is no health care proxy. home support is adequate. Assessment: 09:13 General: see triage note. pml 10:02 General: Appears in no apparent distress, comfortable, Behavior is appropriate for age, pml cooperative. Pain: Location: right upper quadrant Pain currently is 8 out of 10 on a pain scale. Neurological: Level of Consciousness is awake, alert, Oriented to person, place, time. Cardiovascular: Capillary refill < 3 seconds. Respiratory: Airway is patent Respiratory effort is even, unlabored. Derm: Skin is pink, warm & dry. 10:45 General: continues to report 9/10 pain in right flank - ambulatory to bathroom x 2 pml without difficulty, gait steady. family at bedside . 11:46 General: Appears in no apparent distress, comfortable, Behavior is appropriate for age, pml cooperative. Pain: Location: anterior aspect of right lateral abdomen Pain currently is 8 out of 10 on a pain scale. Neurological: Level of Consciousness is awake, alert, Oriented to person, place, time. Cardiovascular: Capillary refill < 3 seconds. Respiratory: Airway is patent Respiratory effort is even, unlabored. Derm: Skin is pink, warm & dry. 12:32 General: Appears in no apparent distress, comfortable, Behavior is appropriate for age, pml cooperative. Pain: Location: anterior aspect of right lateral abdomen Pain currently is 6 out of 10 on a pain scale. Neurological: Level of Consciousness is awake, alert, Oriented to person, place, time. Cardiovascular: Capillary refill < 3 seconds. Respiratory: Airway is patent Respiratory effort is even, unlabored. Derm: Skin is pink, warm & dry. Vital Signs: 08:58 BP 162 / 76 (auto/); pml 09:00 Pulse 82 MON; Pulse Ox 96% ; pml 09:01 BP 162 / 76 LA Sitting (auto/reg); Pulse 85; Resp 20; Temp 97.3(TE); Pulse Ox 96% ; jrd Weight 96.62 kg; Height 5 ft. 4 in. (162.56 cm); Pain 9/10; 09:57 Pulse Ox 96% ; pml 09:57 BP 128 / 58 (auto/); pml 10:25 Pain 8/10; pml 12:32 BP 135 / 73; Pulse 79; Resp 18; Temp 97.2; Pulse Ox 98% on R/A; Pain 6/10; pml 09:01 Body Mass Index 36.56 (96.62 kg, 162.56 cm) jrd Vitals: 09:00 Log In Time N/A - ambulance arrival. pml ED Course: 08:52 Patient visited by Marybeth Camara, Sr. Payroll Manager. deg 08:52 Patient moved to Waiting deg 08:52 Patient moved to 12 deg 08:56 [facility] Dowell [facility] jo4 08:56 Qi Bartlett MD is Attending Physician. jo4 08:56 Triage Initiated pml 09:02 Patient visited by Chaim Lozano PCA. jrd 09:02 Patient visited by Vicki Dominguez RN. pml 09:12 Maintain field IV. Dressing intact. Good blood return noted. Site clean & dry. Gauge & pml site: 18g right AC. 09:13 The patient / caregiver is instructed regarding the plan of care and ED course. Patient pml has correct armband on for positive identification. Placed in gown. Bed in low position. Call light in reach. Side rails up X2. 09:39 Patient visited by Qi Bartlett MD. sd1 10:03 Patient visited by Vicki Dominguez,ESTHER. pml 10:46 Patient visited by Vicki Dominguez,ESTHER. pml 11:22 [facility] [place] Agreement was scanned into [employer] and attached to record. jp5 11:25 Patient name changed from Iyonne\S\\S\Nora\S\ to Iyonne\S\ \S\Nora. EDMS 11:30 CT ABD & PELVIS: No Contrast Returned. EDMS 11:47 Patient visited by Vicki Dominguez,ESTHER. pml 12:32 Discontinued lock intact, bleeding controlled, pressure dressing applied, No pml redness/swelling at site. No procedures done that require assistance. 12:40 T-Sheet-- Draft Copy was scanned into [employer] Git and attached to record. [facility] 14:37 PCR was scanned into [employer] Git and attached to record. gb Administered Medications: 10:01 Drug: morphine 4 mg [morphine 4 mg/mL intravenous cartridge (1 mL)] Route: IVP; Site: pml right antecubital; 10:25 Follow up: Pain 8/10 Adult; Response: No significant change. pml 10:02 Drug: Ondansetron 4 mg [ondansetron HCl 2 mg/mL intravenous solution (2 mL)] Route: pml IVP; Site: right antecubital; 10:44 Drug: ketorolac 30 mg [ketorolac 30 mg/mL (1 mL) injection solution (1 mL)] Route: IVP; pml Site: right antecubital; Order Results: Lab Order: UA; SPEC'M 09/23/16 09:59 Test: APPEARANCE, URINE; Value: CLEAR; Range: CLEAR; Status: F Test: COLOR, URINE; Value: STRAW; Range: YELLOW; Status: F Test: PH,URINE; Value: 6.0; Range: 5.0-9.0; Units: UNITS; Status: F Test: SPECIFIC GRAVITY URINE AUTO; Value: 1.003; Range: 1.002-1.035; Status: F Test: PROTEIN, URINE AUTO; Value: NEGATIVE; Range: NEGATIVE; Units: mg/dL; Status: F Test: GLUCOSE, URINE (UA) AUTO; Value: NEGATIVE; Range: NEGATIVE; Units: mg/dL; Status: F Test: KETONE, URINE AUTO; Value: NEGATIVE; Range: NEGATIVE; Units: mg/dL; Status: F Test: UROBILINOGEN, URINE AUTO; Value: 0.2; Range: 0.0-2.0; Units: mg/dL; Status: F Test: BILIRUBIN, URINE AUTO; Value: NEGATIVE; Range: NEGATIVE; Status: F Test: NITRITE, URINE AUTO; Value: NEGATIVE; Range: NEGATIVE; Status: F Test: LEUKOCYTE ESTERASE, URINE AUTO; Value: NEGATIVE; Range: NEGATIVE; Status: F Test: BLOOD, URINE BLOOD; Value: NEGATIVE; Range: NEGATIVE; Status: F Test: WBC, URINE AUTO; Value: 0; Range: 0-3; Units: /HPF; Status: F Test: RBC, URINE AUTO; Value: 1; Range: 0-3; Units: /HPF; Status: F Test: BACTERIA, URINE AUTO; Value: 2+; Range: NEGATIVE; Abnormal: Above high normal; Status: F Test: SQUAMOUS EPITHELIAL CELL UR AU; Value: 1; Range: 0-6; Units: /HPF; Status: F Test: HYALINE CAST, URINE AUTO; Value: 0; Range: 0-1; Units: /LPF; Status: F Radiology Order: CT ABD & PELVIS: No Contrast Test: CT ABD & PELVIS: No Contrast REASON FOR EXAMINATION: Flank pain/RUQ; Clinical: Right upper quadrant and right flank pain.; ; Comparison: 07/17/2016.; ; Findings:; Liver, spleen, pancreas, bilateral adrenal glands and kidneys are normal for; noncontrast evaluation. Specifically, there is no significant perinephric; stranding, hydroureteronephrosis, intrarenal or obstructing ureteral calculi.; The patient is status post cholecystectomy. The enteric system is without; obstruction or acute inflammatory process and a normal terminal ileum and; appendix are identified in the right lower quadrant. Scattered colonic; diverticula noted without acute diverticulitis. Stable diverticulum extending; along the posterior aspect of the gastric fundus in the left upper quadrant.; Pelvis demonstrates normal bladder and evidence for prior hysterectomy. No; pelvic fluid or ascites. No adenopathy. No mass lesion. No free air.; Abdominal aorta without aneurysm. Musculoskeletal structures demonstrate; degenerative changes. Lung bases are clear.; ; Impression:; No acute intra-abdominal or pelvic pathology appreciated.; Evidence for prior cholecystectomy and hysterectomy.; Colonic diverticula without acute diverticulitis.; No ascites.; ; ; Signed by; Francesco Ross MD 09/23/2016 11:09 A; Outcome: 12:16 Discharge ordered by Provider. jo4 12:32 Discharge Assessment: Patient awake, alert and oriented x 3. No cognitive and/or pml functional deficits noted. Patient verbalized understanding of disposition instructions. patient administered narcotics - yes. Pt provided with safe discharge. The following High Risk Discharge criteria are identified: None. Discharged to home ambulatory, with family. Condition: good Condition: stable. Discharge instructions given to patient, Instructed on discharge instructions, follow up and referral plans. medication usage, Demonstrated understanding of instructions, medications, Pt was receptive of discharge instructions/ teaching. Prescriptions given X 1. CT Study completed. Property sent home with patient. 12:33 Patient left the ED. pml Signatures: Dispatcher [employer] EDQi Conteh MD MD sd1 Marybeth Camara, Sr. Payroll Manager Unit deg Dana Genao, Reg Reg Vicki Coombs,RN RN pml Chaim Lozano, GLASS MECHANIC GLASS MECHANIC Jerardo Kern Jane, DO DO jo4 Qi Ludwig Chart Complete MTDD
--- NOTE | 2016-09-26 09:02 | EDDOCDS ---
Physician Documentation [facility] Name: Ana Rosa Melendez Age: 51 yrs Sex: Female : 1965 Arrival Date: 09/23/2016 Time: 08:51 Bed 12 Private MD: Disposition: 09/23 11:24 I have independently interviewed and examined the patient, and I agree with the sd1 investigation, diagnosis and treatment plan as documented by the Resident. Disposition: 09/23/16 12:16 Discharged to Home/Self Care. Impression: Right upper quadrant pain. - Condition is Stable. - Discharge Instructions: Flank Pain. - Prescriptions for Anaprox DS 550 mg Oral Tablet - take 1 tablet by ORAL route every 12 hours As needed; 20 tablet. - Medication Reconciliation, Local Pharmacy Hours form. - Follow up: Private Physician; When: 1 week; Reason: Recheck today's complaints. - Problem is new. - Symptoms have improved. - Notes: You were evaluated in the emergency department for flank pain. A CT of your abdomen and pelvis reported no acute changes. You were given pain medication and an anti-inflammatory which appeared to control your pain somewhat. Your urine was analyzed and it was essentially within normal limits. An anti-inflammatory has been prescribed to you at time of discharge. Your kidney function at a prior visit was within normal limits. Please follow-up with your primary care physician in 1 week. Historical: - Allergies: Wellbutrin (Rash); - Home Meds: 1. duloxetine 30 mg Oral cpDR 1 cap once daily 2. hydrochlorothiazide 12.5 mg Oral tab 1 tab once daily 3. Lipitor 80 mg Oral tab 1 tab once daily 4. Premarin 0.9 mg Oral tab 1 tab once daily 5. omeprazole 40 mg Oral cpDR 1 cap once daily 6. montelukast 10 mg oral tab 1 tab once daily 7. losartan 100 mg oral tab 1 tab once daily 8. aspirin 81 mg Oral chew 1 tab once daily 9. cholecalciferol (vitamin D3) 50,000 unit oral cap every 2 weeks 10. hydrocodone-acetaminophen 5-325 mg Oral tab 1 tab every 4-6 hours (Last dose: 09/23/2016 04:00) - PMHx: Depression; Hypercholesterolemia; Hypertension; - PSHx: ; Cholecystectomy; partial hysterectomy; - Social history: Smoking status: Patient uses tobacco products, heavy tobacco smoker. No barriers to communication noted, The patient speaks fluent Georgian, Speaks appropriately for age. - Family history: Not pertinent. - : The pt / caregiver states he / she is not on anticoagulants. Home medication list is obtained from the patient. - Exposure Risk Screening:: None identified. 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 4 in. (162.56 cm); Pain 9/10; 09:57 Pulse Ox 96% ; pml 09:57 BP 128 / 58 (auto/); pml 10:25 Pain 8/10; pml 12:32 BP 135 / 73; Pulse 79; Resp 18; Temp 97.2; Pulse Ox 98% on R/A; Pain 6/10; pml 09:01 Body Mass Index 36.56 (96.62 kg, 162.56 cm) jrd MDM: 09:51 Ondansetron 4 mg IVP once ordered. jo4 09:51 morphine 4 mg IVP every 15 minutes; Document pain score/vitals after each dose (Hold if jo4 SBP < 90mmHg) x2 ordered. 09:51 IV Saline Lock ordered. jo4 09:52 UA Ordered. EDMS 10:30 UA Reviewed. sd1 10:36 ketorolac 30 mg IVP once ordered. jo4 10:37 CT ABD & PELVIS: No Contrast Ordered. 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 11:22 [facility] [place] Payment Agreement was scanned into [employer] and attached to record. jp5 11:22 Financial registration complete. jp5 12:06 CT ABD & PELVIS: No Contrast Reviewed. jo4 12:40 T-Sheet-- Draft Copy was scanned into [employer] and attached to record. se 14:37 PCR was scanned into [employer] and attached to record. gb Administered Medications: 10:01 Drug: morphine 4 mg [morphine 4 mg/mL intravenous cartridge (1 mL)] Route: IVP; Site: pml right antecubital; 10:25 Follow up: Pain 8/10 Adult; Response: No significant change. pml 10:02 Drug: Ondansetron 4 mg [ondansetron HCl 2 mg/mL intravenous solution (2 mL)] Route: pml IVP; Site: right antecubital; 10:44 Drug: ketorolac 30 mg [ketorolac 30 mg/mL (1 mL) injection solution (1 mL)] Route: IVP; pml Site: right antecubital; Signatures: Dispatcher [employer] EDQi Conteh MD MD sd1 Dana Genao, Reg Reg gb Vicki DominguezRN RN pml Jerardo Bailey jp5 Deborah Dowell DO DO jo4 Hoffert, Sarah seh The chart was reviewed and I authenticate all verbal orders and agree with the evaluation and treatment provided.Attachments: 11:22 [facility] [place] Payment Agreement jp5 12:40 T-Sheet-- Draft Copy se Chart Complete MTDD
--- NOTE | 2016-09-26 09:02 | EDDOCDS ---
Physician Documentation [facility] Name: Ana Rosa Melendez Age: 51 yrs Sex: Female : 1965 Arrival Date: 09/23/2016 Time: 08:51 Bed 12 Private MD: Disposition: 09/23 11:24 I have independently interviewed and examined the patient, and I agree with the sd1 investigation, diagnosis and treatment plan as documented by the Resident. Disposition: 09/23/16 12:16 Discharged to Home/Self Care. Impression: Right upper quadrant pain. - Condition is Stable. - Discharge Instructions: Flank Pain. - Prescriptions for Anaprox DS 550 mg Oral Tablet - take 1 tablet by ORAL route every 12 hours As needed; 20 tablet. - Medication Reconciliation, Local Pharmacy Hours form. - Follow up: Private Physician; When: 1 week; Reason: Recheck today's complaints. - Problem is new. - Symptoms have improved. - Notes: You were evaluated in the emergency department for flank pain. A CT of your abdomen and pelvis reported no acute changes. You were given pain medication and an anti-inflammatory which appeared to control your pain somewhat. Your urine was analyzed and it was essentially within normal limits. An anti-inflammatory has been prescribed to you at time of discharge. Your kidney function at a prior visit was within normal limits. Please follow-up with your primary care physician in 1 week. Historical: - Allergies: Wellbutrin (Rash); - Home Meds: 1. duloxetine 30 mg Oral cpDR 1 cap once daily 2. hydrochlorothiazide 12.5 mg Oral tab 1 tab once daily 3. Lipitor 80 mg Oral tab 1 tab once daily 4. Premarin 0.9 mg Oral tab 1 tab once daily 5. omeprazole 40 mg Oral cpDR 1 cap once daily 6. montelukast 10 mg oral tab 1 tab once daily 7. losartan 100 mg oral tab 1 tab once daily 8. aspirin 81 mg Oral chew 1 tab once daily 9. cholecalciferol (vitamin D3) 50,000 unit oral cap every 2 weeks 10. hydrocodone-acetaminophen 5-325 mg Oral tab 1 tab every 4-6 hours (Last dose: 09/23/2016 04:00) - PMHx: Depression; Hypercholesterolemia; Hypertension; - PSHx: ; Cholecystectomy; partial hysterectomy; - Social history: Smoking status: Patient uses tobacco products, heavy tobacco smoker. No barriers to communication noted, The patient speaks fluent Occitan, Speaks appropriately for age. - Family history: Not pertinent. - : The pt / caregiver states he / she is not on anticoagulants. Home medication list is obtained from the patient. - Exposure Risk Screening:: None identified. 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 4 in. (162.56 cm); Pain 9/10; 09:57 Pulse Ox 96% ; pml 09:57 BP 128 / 58 (auto/); pml 10:25 Pain 8/10; pml 12:32 BP 135 / 73; Pulse 79; Resp 18; Temp 97.2; Pulse Ox 98% on R/A; Pain 6/10; pml 09:01 Body Mass Index 36.56 (96.62 kg, 162.56 cm) jrd MDM: 09:51 Ondansetron 4 mg IVP once ordered. jo4 09:51 morphine 4 mg IVP every 15 minutes; Document pain score/vitals after each dose (Hold if jo4 SBP < 90mmHg) x2 ordered. 09:51 IV Saline Lock ordered. jo4 09:52 UA Ordered. EDMS 10:30 UA Reviewed. sd1 10:36 ketorolac 30 mg IVP once ordered. jo4 10:37 CT ABD & PELVIS: No Contrast Ordered. 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 11:22 [facility] [place] Agreement was scanned into Voice[employer] and attached to record. jp5 11:22 Financial registration complete. jp5 12:06 CT ABD & PELVIS: No Contrast Reviewed. jo4 12:40 T-Sheet-- Draft Copy was scanned into VoiceObjects and attached to record. se 14:37 PCR was scanned into VoiceObjects and attached to record. gb Administered Medications: 10:01 Drug: morphine 4 mg [morphine 4 mg/mL intravenous cartridge (1 mL)] Route: IVP; Site: pml right antecubital; 10:25 Follow up: Pain 8/10 Adult; Response: No significant change. pml 10:02 Drug: Ondansetron 4 mg [ondansetron HCl 2 mg/mL intravenous solution (2 mL)] Route: pml IVP; Site: right antecubital; 10:44 Drug: ketorolac 30 mg [ketorolac 30 mg/mL (1 mL) injection solution (1 mL)] Route: IVP; pml Site: right antecubital; Signatures: Dispatcher [employer] EDQi Conteh MD MD sd1 Dana Genao, Reg Reg gb Vicki DominguezRN RN pml Jerardo Bailey jp5 Deborah Dowell DO DO jo4 Hoffert, Sarah seh The chart was reviewed and I authenticate all verbal orders and agree with the evaluation and treatment provided.Attachments: 11:22 [facility] Payment Agreement jp5 12:40 T-Sheet-- Draft Copy se Chart Complete MTDD
== END 2016-09-23 12:33 | disposition home or self-care (01) ==
LOC: M ED 08:51
DX: K57.90 Diverticulosis of intestine, part unspecified, without perforation or abscess without bleeding (principal); R10.9 Unspecified abdominal pain; F32.9 Major depressive disorder, single episode, unspecified; I10 Essential (primary) hypertension; E78.00 Pure hypercholesterolemia, unspecified; Z90.49 Acquired absence of other specified parts of digestive tract; Z90.79 Acquired absence of other genital organ(s); Z79.82 Long term (current) use of aspirin; Z79.899 Other long term (current) drug therapy; Z88.8 Allergy status to other drugs, medicaments and biological substances

== ENCOUNTER 2020-05-10 11:52 | Emergency (ER) | payer OTHER, MEDICAID ==
[~2020-05-10] VITALS: Ht 170.2 cm; Wt 95.5 kg
[2020-05-10 12:48] LABS: BASO % 0.5 % (0.0-1.0); EOS # 0.1 10^3/uL (0.0-0.5); EOS % 1.2 % (0.0-3.0); HEMATOCRIT 38.8 % (36.0-47.0); HEMOGLOBIN 12.8 g/dl (12.0-15.5); LYMPH # 1.7 10^3/uL (1.5-5.0); LYMPH % 22.4 % (24.0-44.0); MEAN CORPUSCULAR HEMOGLOBIN 30.4 pg (27.0-33.0); MEAN CORPUSCULAR VOLUME 92.2 fl (80.0-96.0); MONO # 0.5 10^3/uL (0.0-0.8); MONO % 6.3 % (0.0-5.0); NEUTROPHILS # 5.3 10^3/uL (1.5-8.5); NEUTROPHILS % 68.8 % (36.0-66.0); PLATELET COUNT, AUTOMATED 231 10^3/uL (150-450); RED BLOOD COUNT 4.21 10^6/uL (4.00-5.40); WHITE BLOOD COUNT 7.7 10^3/uL (4.0-10.0)
[2020-05-10 13:05] LABS: ALBUMIN 3.7 GM/DL (3.2-5.2); ALT/SGPT 25 U/L (12-78); BILIRUBIN,DIRECT < 0.1 MG/DL (0.0-0.2); BILIRUBIN,TOTAL 0.5 MG/DL (0.2-1.0); LIPASE 351 U/L (73-393); TOTAL PROTEIN 6.8 GM/DL (6.4-8.2)
[2020-05-10] MEDS ORDERED: ONDANSETRON 4MG/2ML VIAL IV ONE (13:15)
[2020-05-10] MEDS ORDERED: NS 1,000 ML IV ONE (13:15)
[2020-05-10] MEDS ORDERED: GI COCKTAIL 50ML BTL(HYOSCYAMINE/MAALOX/LIDOCAINE VISCOUS)(1:3:1) PO ONE (13:15)
--- NOTE | 2020-05-10 14:09 | REPVR ---
PROCEDURE INFORMATION: Exam: CT Abdomen And Pelvis Without Contrast Exam date and time: 05/10/2020 1:12 PM Age: 55 years old Clinical indication: Abdominal pain; Additional info: Ruq to mid epigastric pain TECHNIQUE: Imaging protocol: Computed tomography of the abdomen and pelvis without contrast. Radiation optimization: All CT scans at this facility use at least one of these dose optimization techniques: automated exposure control; mA and/or kV adjustment per patient size (includes targeted exams where dose is matched to clinical indication); or iterative reconstruction. COMPARISON: CT ABD PELVIS W/O CONTRAST 09/23/2016 10:53 AM FINDINGS: Limitations: Evaluation is somewhat limited by lack of IV contrast. Lungs: The visualized lung bases are essentially clear. Liver: Grossly unremarkable. Gallbladder and bile ducts: No gallstones are evident, but ultrasound would be more sensitive. No gross biliary ductal dilatation. Pancreas: Grossly unremarkable. Spleen: Grossly unremarkable. Adrenals: Grossly unremarkable. Kidneys and ureters: Grossly unremarkable. No hydronephrosis or renal or ureteral calculus. Stomach and bowel: There is a similar posterior gastric diverticulum. The unopacified small bowel is not significantly distended to suggest obstruction. There is again mild scattered colonic diverticulosis without evidence for diverticulitis. The large bowel is otherwise grossly unremarkable in appearance. Appendix: The appendix appears normal. Intraperitoneal space: No free air or significant free fluid. Vasculature: The abdominal aorta is nonaneurysmal. Atherosclerotic vascular calcifications are again present. Lymph nodes: No gross pathologic lymphadenopathy. Bladder: The urinary bladder is not distended, but may be thick-walled. Reproductive: There is again been hysterectomy. No gross adnexal abnormality is apparent, but ultrasound would be more appropriate in this regard. Bones/joints: Degenerative changes again involve the spine and hips. Soft tissues: There are again small fat containing umbilical and bilateral inguinal hernias. IMPRESSION: 1. No hydronephrosis or renal or ureteral calculus. 2. Question wall thickening of the urinary bladder. Correlate as to any possible cystitis. 3. Mild scattered colonic diverticulosis without evidence for diverticulitis, as on on 09/23/16. 4. Similar posterior gastric diverticulum. 5. Similar small fat containing umbilical and bilateral inguinal hernias. COMMENTS: Depending on suspected etiology of symptoms, consider a targeted ultrasound or contrast enhanced exam. Electronically signed by: Osmani Mcdermott On 05/10/2020 14:09:33 PM
[2020-05-10] MEDS ORDERED: FAMO20TA PO (15:04)
[2020-05-10] MEDS ORDERED: CARA1TAB6 PO (15:04)
[2020-05-10] MEDS ORDERED: ZOFR4TAB16 PO (15:04)
[2020-05-10 15:29] VITALS: BP 147/63
--- NOTE | 2020-05-19 10:25 | ECGEPIP ---
[facility] - ED Test Date: 2020-05-10 Pat Name: PILO REEDER Department: Room: - Gender: Female Rehabilitation Services Counselor: lanie devine : 1965 Requested By: DANIAL Torres Order Number: [id number] Reading MD: Qi Bartlett Measurements Intervals [place] Rate: 70 P: 46 ME: 164 QRS: 24 QRSD: 84 T: 41 QT: 413 QTc: 447 Interpretive Statements SINUS RHYTHM NONSPECIFIC T-WAVE ABNORMALITY SEE SCANNED DOWNTIME REPORT
== END 2020-05-10 15:32 | disposition home or self-care (01) ==
LOC: M ED 11:52 → EDBD 11:52 → M ED 15:32
DX: K29.70 Gastritis, unspecified, without bleeding (principal); I10 Essential (primary) hypertension; F17.200 Nicotine dependence, unspecified, uncomplicated; K57.30 Diverticulosis of large intestine without perforation or abscess without bleeding; K42.9 Umbilical hernia without obstruction or gangrene; K40.90 Unilateral inguinal hernia, without obstruction or gangrene, not specified as recurrent; Z79.899 Other long term (current) drug therapy; Z88.8 Allergy status to other drugs, medicaments and biological substances
CPT/HCPCS: 74176; 80047; 80076; 81001; 83690; 85025; 93005; 93041; 96361; 96374; 99284; J2405